=== PATIENT | female | born 1955 | race Caucasian/White ===

== ENCOUNTER 2019-09-18 06:42 | Emergency (ER) | payer OTHER ==
[2019-09-18 07:42] LABS: ABSOLUTE LYMPHOCYTES (AUTO) 1.6 10^3/uL (0.5-4.7); ABSOLUTE MONOCYTES (AUTO) 0.8 10^3/uL (0.1-1.4); ABSOLUTE NEUT (AUTO) 11.1 10^3/uL (1.7-8.2); BASOPHILS % (AUTO) 0.3 % (0-2); EOSINOPHILS % (AUTO) 0.2 % (0-6); HEMATOCRIT 42.5 % (36.0-47.0); HEMOGLOBIN 14.3 g/dL (12.0-15.5); LYMPHOCYTES % (AUTO) 11.8 % (13-45); MEAN CORPUSCULAR HEMOGLOBIN 29.4 pg (27.0-33.4); MEAN CORPUSCULAR HGB CONC 33.6 g/dL (32.0-36.0); MEAN CORPUSCULAR VOLUME 88 fl (80-97); MONOCYTES % (AUTO) 5.8 % (3-13); PLATELET COUNT 403 10^3/uL (150-450); RED BLOOD COUNT 4.86 10^6/uL (3.72-5.28); RED CELL DISTRIBUTION WIDTH 12.9 % (11.5-14.0); SEGMENTED NEUTROPHILS % (AUTO) 81.9 % (42-78); TOTAL CELLS COUNTED % (AUTO) 100 %; WHITE BLOOD COUNT 13.6 10^3/uL (4.0-10.5)
[2019-09-18 07:52] LABS: AMORPHOUS SEDIMENT,URINE 1+ /HPF; APPEARANCE,URINE TURBID; BILIRUBIN,URINE NEGATIVE (NEGATIVE); COLOR,URINE YELLOW; GLUCOSE, URINE NEGATIVE (NEGATIVE); KETONES,URINE NEGATIVE (NEGATIVE); LEUKOCYTE ESTERASE,URINE TRACE (NEGATIVE); NITRITE,URINE NEGATIVE (NEGATIVE); PROTEIN,URINE 30 mg/dL (NEGATIVE); URINE SPECIFIC GRAVITY 1.025; UROBILINOGEN,URINE NEGATIVE mg/dL (<2.0)
[2019-09-18 08:09] LABS: ALBUMIN 4.1 g/dL (3.5-5.0); ALKALINE PHOSPHATASE 89 U/L (38-126); ANION GAP 11 (5-19); ASPARTATE AMINO TRANSFERASE 21 U/L (14-36); BILIRUBIN,DIRECT 0.2 mg/dL (0.0-0.4); BILIRUBIN,TOTAL 0.6 mg/dL (0.2-1.3); BLOOD UREA NITROGEN 11 mg/dL (7-20); CALCIUM 9.3 mg/dL (8.4-10.2); CARBON DIOXIDE 25 mmol/L (22-30); CHLORIDE 104 mmol/L (98-107); GLUCOSE 141 mg/dL (75-110); TOTAL PROTEIN 7.2 g/dL (6.3-8.2)
--- NOTE | 2019-09-18 09:21 | ER Document Report ---
ED GI/ - General Chief Complaint: Abdominal Pain Stated Complaint: STOMACH PAIN Time Seen by Provider: 09/18/19 09:20 Primary Care Provider: CRISSY PORTILLO MD [Primary Care Provider] - Follow up as needed Notes: CHIEF COMPLAINT: Abdominal pain and diarrhea HPI: 63-year-old female presenting to the emergency department for evaluation of generalized abdominal pain and diarrhea. Patient states symptoms began yeste rday. Patient with history of gallstone pancreatitis in 2010 that resolved after cholecystectomy. Patient states that she has a constant level of generalized discomfort with some waves of increased pain. She has had some nausea no vomiting. Patient states she has had multiple episodes of watery diarrhea, 4 this morning, greater than 8 or 9 yesterday. No blood in stool. Discomfort is worse with position and movement. She has not had a fever. No recent travel outside of the country, no recent hospitalizations or antibiotic use ROS: See HPI - all other systems were reviewed and are otherwise negative Constitutional: no fever Eyes: no drainage, no blurred vision ENT: no runny nose, no sore throat Cardiovascular: no chest pain Resp: no SOB, no cough GI: no vomiting, + diarrhea, + abdominal pain, + nausea : no dysuria Integumentary: no rash Allergy: no hives Musculoskeletal: no extremity pain or swelling Neurological: no numbness/tingling, no weakness MEDICATIONS: I agree with the patient medications as charted by the RN. ALLERGIES: I agree with the allergies as charted by the RN. PAST MEDICAL HISTORY/PAST SURGICAL HISTORY: Reviewed and agree as charted by RN. SOCIAL HISTORY: Reviewed and agree as charted by RN. FAMILY HISTORY: No significant familial comorbid conditions directly related to patient complaint EXAM: Reviewed vital signs as charted by RN. CONSTITUTIONAL: Alert and oriented and responds appropriately to questions. Well-appearing; well-nourished, moderate distress secondary to pain HEAD: Normocephalic; atraumatic EYES: PERRL; Conjunctivae clear, sclerae non-icteric ENT: normal nose; no rhinorrhea; moist mucous membranes; pharynx without lesions noted, no uvula edema or deviation, no tonsillar hypertrophy, phonation normal NECK: Supple without meningismus; non-tender; no cervical lymphadenopathy, no masses CARD: RRR; no murmurs, no clicks, no rubs, no gallops; symmetric distal pulses RESP: Normal chest excursion without splinting or tachypnea; breath sounds clear and equal bilaterally; no wheezes, no rhonchi, no rales, pulse oximetry ABD/GI: Normal bowel sounds; non-distended; soft, generalized abdominal pain in all quadrants on palpation with guarding; no palpable organomegaly or masses. BACK: The back appears normal and is non-tender to palpation, there is no CVA tenderness EXT: Normal ROM in all joints; non-tender to palpation; no cyanosis, no effusions, no edema SKIN: Normal color for age and race; warm; dry; good turgor; no acute lesions noted NEURO: Moves all extremities equally; Motor and sensory function intact PSYCH: The patient's mood and manner are appropriate. Grooming and personal hygiene are appropriate. MDM: 63-year-old female presenting to the emergency department complaining of generalized abdominal pain with multiple episodes of diarrhea that began yesterday. No recent antibiotic use or hospitalizations. Prior history of cholecystectomy. She has diffuse abdominal pain on palpation. Screening abdominal labs were obtained by triage showing a mild leukocytosis of 13.6. Urinalysis does not show evidence of infection. Will plan for CT to evaluate for pancreatitis, colitis, perforation or obstruction TRAVEL OUTSIDE OF THE [place] IN LAST 30 DAYS: No - Related Data Allergies/Adverse Reactions: codeine [Codeine] Allergy (Verified 03/22/14 15:48) latex [Latex] Allergy (Verified 03/22/14 15:48) Sulfa (Sulfonamide Antibiotics) Allergy (Verified 03/22/14 15:48) Past Medical History - Social History Smoking Status: Never Smoker Chew tobacco use (# tins/day): No Frequency of alcohol use: None Drug Abuse: None Family History: Reviewed & Not Pertinent Patient has suicidal ideation: No Patient has homicidal ideation: No - Immunizations Hx Diphtheria, Pertussis, Tetanus Vaccination: Yes Physical Exam - Vital signs Vitals: Temp Pulse BP Pulse Ox 97.8 F 119 H 152/91 H 98 09/18/19 06:48 09/18/19 06:48 09/18/19 06:48 09/18/19 06:48 Course - Re-evaluation Re-evalutation: 09/18/19 13:33 Patient was noted to have acute colitis on CT. Clinically looks well. Will start patient on Cipro Flagyl, patient states she can take Percocet for pain. We will also write Zofran. Will refer patient for GI follow-up. We discussed strict return instructions for focal abdominal pain fever or uncontrolled pain at home. Patient is in agreement with this plan. - Vital Signs Vital signs: Temp Pulse Resp BP Pulse Ox 98.2 F 119 H 146/81 H 93 09/18/19 12:00 09/18/19 06:48 09/18/19 12:00 09/18/19 12:01 - Laboratory Result Diagrams: 09/18/19 07:25 09/18/19 07:25 Laboratory results interpreted by me: 09/18/19 09/18/19 09/18/19 07:00 07:25 07:25 WBC 13.6 H Lymph % (Auto) 11.8 L Absolute Neuts (auto) 11.1 H Seg Neutrophils % 81.9 H Glucose 141 H Urine Protein 30 H Ur Leukocyte Esterase TRACE H Discharge - Discharge Clinical Impression: Acute colitis, Diverticulosis, Left nephrolithiasis Condition: Stable Disposition: HOME, SELF-CARE Additional Instructions: Take the medications as prescribed, hydrate well at home. Do not drive if taking narcotics for pain. Follow-up with gastroenterology for further evaluation and treatment call for appointment. If you have uncontrolled pain at home, focal abdominal pain or fever greater than 101 return to the emergency department for evaluation as discussed. It was noted on your imaging studies today that you have diverticulosis and acute colitis. It was also noted that you have a kidney stone in the left kidney Prescriptions: Ciprofloxacin HCl [Cipro 500 mg Tablet] 500 mg PO BID #20 tablet Metronidazole [Flagyl 500 mg Tablet] 500 mg PO Q6H #28 tablet Oxycodone HCl/Acetaminophen [Percocet 5-325 mg Tablet] 1 - 2 tab PO Q4H PRN #15 tablet PRN Reason: Ondansetron [Zofran Odt 4 mg Tablet] 1 - 2 tab PO Q4H PRN #15 tab.rapdis PRN Reason: For Nausea/Vomiting Referrals: CRISSY PORTILLO MD [Primary Care Provider] - Follow up as needed ROSEANNA VAZQUEZ MD [ACTIVE STAFF] - Follow up as needed
--- NOTE | 2019-09-18 12:44 | RADIOLOGY REPORT (SQ) ---
EXAM DESCRIPTION: CT ABD/PELVIS WITH IV ORAL COMPLETED DATE/TIME: 09/18/2019 12:27 pm REASON FOR STUDY: generalized abd pain COMPARISON: None. TECHNIQUE: CT scan of the abdomen and pelvis performed using helical scanning technique with dynamic intravenous contrast injection. No oral contrast. Images reviewed with lung, soft tissue, and bone windows. Reconstructed coronal and sagittal MPR images reviewed. Delayed images for evaluation of the urinary system also acquired. All images stored on PACS. All CT scanners at this facility use dose modulation, iterative reconstruction, and/or weight based d osing when appropriate to reduce radiation dose to as low as reasonably achievable (ALARA). [facility]: Dose Right [facility]: CareDose [facility]: Dose Right [facility]: Teradose 4D [facility]: [place] CONTRAST TYPE AND DOSE: contrast/concentration: Isovue 350.00 mg/ml; Total Contrast Delivered: 95.0 ml; Total Saline Delivered: 71.0 ml RENAL FUNCTION: GFR > 60. RADIATION DOSE: CT Rad equipment meets quality standard of care and radiation dose reduction techniq ues were employed. CTDIvol: 14.7 - 18.0 mGy. DLP: 1989 mGy-cm.. LIMITATIONS: None. FINDINGS: LOWER CHEST: Gastroesophageal reflux. LIVER: Normal size. No masses. No dilated ducts. SPLEEN: Normal size. No focal lesions. PANCREAS: No masses. No significant calcifications. No adjacent inflammation or peripancreatic fluid collections. Pancreatic duct not dilated. GALLBLADDER: Surgically absent. ADRENAL GLANDS: No significant masses or asymmetry. RIGHT KIDNEY AND URETER: No solid masses. No significant calcifications. No hydronephrosis or hyd roureter. LEFT KIDNEY AND URETER: No solid masses. 7 mm stone lower pole. No hydronephrosis or hydroureter. AORTA AND VESSELS: No aneurysm. No dissection. Renal arteries, SMA, celiac without stenosis. RETROPERITONEUM: No retroperitoneal adenopathy, hemorrhage or masses. BOWEL AND PERITONEAL CAVITY: Bowel wall thickening involving jejunum in the right lower quadrant and pelvis. No clear transition. Ileum is normal. Diverticulosis descending and sigmoid colon. Small amount of ascites. No free air. APPENDIX: Appendicolith. No inflammation. PELVIS: Small amount of free fluid. No pelvic adenopathy. ABDOMINAL WALL: Small fat containing anterior abdominal wall hernias. BONES: No significant or acute findings. OTHER: No other significant finding. IMPRESSION: 1. Bowel wall thickening involving loops of jejunum in the right lower quadrant and pelvis most likel y due to inflammatory or infectious process. 2. Small amount of ascites. 3. Diverticulosis without evidence of diverticulitis. 4. Nonobstructing left renal calculus. TECHNICAL DOCUMENTATION: JOB ID: [id number] Quality ID # [id number]: Final reports with documentation of one or more dose reduction techniques (e.g., Au tomated exposure control, adjustment of the mA and/or kV according to patient size, use of iterative reconstruction technique) 2010 [employer]- All Rights Reserved Reading location - IP/workstation name: INSTRUMENT PROCESSING TECH-[facility]-
[2019-09-18] MEDS ORDERED: ONDANSETRON HCL INJ/PF 4 MG/2 ML SDV IV ONE (13:05)
[2019-09-18] MEDS ORDERED: METRONIDAZOLE 500 MG TABLET PO ONE (13:05)
[2019-09-18] MEDS ORDERED: MORPHINE SULFATE 10 MG/ML INJ IV ONE (13:05)
[2019-09-18] MEDS ORDERED: CIPROFLOXACIN HCL 500 MG TABLET PO ONE (13:05)
[2019-09-18 15:07] VITALS: BP 146/77
== END 2019-09-18 15:05 | disposition home or self-care (01) ==
LOC: ER 06:42
DX: K52.9 Noninfective gastroenteritis and colitis, unspecified (principal); K57.90 Diverticulosis of intestine, part unspecified, without perforation or abscess without bleeding; N20.0 Calculus of kidney; R10.84 Generalized abdominal pain; R11.0 Nausea; Z88.6 Allergy status to analgesic agent; Z91.040 Latex allergy status; Z88.2 Allergy status to sulfonamides
CPT/HCPCS: 99284; 96374; 96375; 36415; 83690; 85025; 80053; 81001; 74177; J2270; J2405

== ENCOUNTER 2020-08-21 16:41 | Emergency (ER) | payer OTHER ==
[2020-08-21] MEDS ORDERED: NORMAL SALINE 1000 ML 1,000 ML IV ONE (17:32)
[2020-08-21] MEDS ORDERED: ONDANSETRON HCL INJ/PF 4 MG/2 ML SDV IV ONE (17:32)
[2020-08-21] MEDS ORDERED: KETOROLAC TROMETHAMINE INJ/PF 30 MG/1 ML SDV IV ONE (17:32)
--- NOTE | 2020-08-21 17:34 | ER Document Report ---
ED Medical Screen (RME) - General Chief Complaint: Flank Pain Stated Complaint: LEFT FLANK PAIN Time Seen by Provider: 08/21/20 17:23 Primary Care Provider: CRISSY PORTILLO MD [Primary Care Provider] - Follow up as needed TRAVEL OUTSIDE OF THE [place] IN LAST 30 DAYS: No - HPI Notes: 08/21/20 17:33 64-year-old female presents to ED for evaluation of left-sided flank pain starting at early this morning. Notes that she did take Tylenol and ibuprofen this morning with some improvement. Reports she has had difficulty urinating all day. Also reports 1 bowel movement that was liquid in nature. Denies history of kidney stones. Has had diverticulitis in the past however reports that this feels different. Denies any recent sick contacts. Denies other complaints. - Related Data Allergies/Adverse Reactions: codeine [Codeine] Allergy (Verified 03/22/14 15:48) latex [Latex] Allergy (Verified 03/22/14 15:48) Sulfa (Sulfonamide Antibiotics) Allergy (Verified 03/22/14 15:48) Home Medications: Synthroid Past Medical History - Social History Chew tobacco use (# tins/day): No Frequency of alcohol use: None Drug Abuse: None Endocrine Medical History: Reports: Hx Hypothyroidism Past Surgical History: Reports: Hx Cholecystectomy - Immunizations Hx Diphtheria, Pertussis, Tetanus Vaccination: Yes Physical Exam - Vital signs Vitals: Temp Pulse Resp BP Pulse Ox 98.3 F 75 16 155/81 H 99 08/21/20 17:15 08/21/20 17:15 08/21/20 17:15 08/21/20 17:15 08/21/20 17:15 General: No acute distress. Alert and oriented x3. Sitting comfortably in a stretcher. Skin: No jaundice, pallor, petechiae, or rashes. Warm and dry. Heart: Regular rate and rhythm. S1,S2. No murmurs, rubs, or gallops. Lungs: Clear to auscultation bilaterally. No wheezes, rhonchi, rales. Equal chest expansion. No retractions. Abdomen: Soft, tender to palpation in left lower abdomen, nondistended. Positive bowel sounds in all 4 quadrants. No masses. CVA tenderness to left side Back: No midline spinal TTP. No paraspinous muscular TTP. Neuro: GCS 15. Moving all extremities without discomfort. Psych: Mood and affect appropriate. Course - Vital Signs Vital signs: Temp Pulse Resp BP Pulse Ox 98.3 F 75 16 155/81 H 99 08/21/20 17:15 08/21/20 17:15 08/21/20 17:15 08/21/20 17:15 08/21/20 17:15 Doctor's Discharge - Discharge Referrals: CRISSY PORTILLO MD [Primary Care Provider] - Follow up as needed
[2020-08-21 18:23] LABS: AMORPHOUS SEDIMENT,URINE TRACE /HPF; APPEARANCE,URINE CLOUDY; BILIRUBIN,URINE NEGATIVE (NEGATIVE); COLOR,URINE AMBER; GLUCOSE, URINE NEGATIVE (NEGATIVE); KETONES,URINE NEGATIVE (NEGATIVE); LEUKOCYTE ESTERASE,URINE LARGE (NEGATIVE); NITRITE,URINE NEGATIVE (NEGATIVE); PROTEIN,URINE 100 mg/dL (NEGATIVE); URINE SPECIFIC GRAVITY 1.033; UROBILINOGEN,URINE NEGATIVE mg/dL (<2.0)
[2020-08-21 18:41] LABS: ABSOLUTE LYMPHOCYTES (AUTO) 1.4 10^3/uL (0.5-4.7); ABSOLUTE MONOCYTES (AUTO) 0.8 10^3/uL (0.1-1.4); ABSOLUTE NEUT (AUTO) 6.1 10^3/uL (1.7-8.2); BASOPHILS % (AUTO) 0.3 % (0-2); EOSINOPHILS % (AUTO) 0.2 % (0-6); HEMOGLOBIN 12.6 g/dL (12.0-15.5); LYMPHOCYTES % (AUTO) 17.3 % (13-45); MEAN CORPUSCULAR HEMOGLOBIN 30.3 pg (27.0-33.4); MEAN CORPUSCULAR HGB CONC 34.1 g/dL (32.0-36.0); MEAN CORPUSCULAR VOLUME 89 fl (80-97); MONOCYTES % (AUTO) 9.3 % (3-13); PLATELET COUNT 265 10^3/uL (150-450); RED BLOOD COUNT 4.16 10^6/uL (3.72-5.28); RED CELL DISTRIBUTION WIDTH 13.1 % (11.5-14.0); SEGMENTED NEUTROPHILS % (AUTO) 72.9 % (42-78); TOTAL CELLS COUNTED % (AUTO) 100 %; WHITE BLOOD COUNT 8.3 10^3/uL (4.0-10.5)
[2020-08-21 18:53] LABS: ALKALINE PHOSPHATASE 95 U/L (38-126); ANION GAP 8 (5-19); ASPARTATE AMINO TRANSFERASE 20 U/L (14-36); BILIRUBIN,DIRECT 0.1 mg/dL (0.0-0.4); BILIRUBIN,TOTAL 0.3 mg/dL (0.2-1.3); BLOOD UREA NITROGEN 20 mg/dL (7-20); CALCIUM 9.3 mg/dL (8.4-10.2); CARBON DIOXIDE 26 mmol/L (22-30); CHLORIDE 104 mmol/L (98-107); GLUCOSE 107 mg/dL (75-110); POTASSIUM 3.5 mmol/L (3.6-5.0); TOTAL PROTEIN 6.7 g/dL (6.3-8.2)
--- NOTE | 2020-08-21 20:24 | RADIOLOGY REPORT (SQ) ---
EXAM DESCRIPTION: CT ABDOMEN PELVIS WITH IV CONTRAST COMPLETED DATE/TME: 08/21/2020 20:06 CLINICAL HISTORY: 64 years, Female, kidney stones TECHNICAL DOCUMENTATION: Quality ID # [id number]: Final reports with documentation of one or more dose reduction techniques (e.g., Automated exposure control, adjustment of the mA and/or kV according to patient size, use of iterative reconstruction technique) Comparison: None TECHNIQUE: Contiguous axial CT images of the abdomen and pelvis were obtained. Sagittal and coronal reformats were reviewed. This exam was performed according to our departmental dose-optimization program, which includes automated exposure control, adjustment of the mA and/or kV according to patient size and/or use of iterative reconstruction technique. FINDINGS: Lung bases: Lung bases are clear. No pleural abnormalities. Liver:Unremarkable. No focal liver lesion. Gallbladder:Cholecystectomy clips seen in gallbladder fossa. Spleen:Unremarkable Pancreas: Pancreas is unremarkable. Adrenal glands:Within normal limits. Kidneys/ureters: Mild left hydronephrosis secondary to a 6 x 4 mm calculus within the ureteropelvic junction. No additional left renal calculi. No hydronephrosis or nephrolithiasis on the right. The left kidney is mildly edematous in appearance with adjacent mild perinephric fat stranding. Stomach/small bowel/colon: Stomach is unremarkable. Small bowel is unremarkable. Colonic diverticulosis without evidence of diverticulitis. Appendix: No evidence of appendicitis. Peritoneum: No free fluid. Vascular structures: within normal limits Lymph nodes: No abnormal lymph nodes. Bladder:Unremarkable. Pelvic organs: No acute abnormality Bones: No acute osseous abnormality. Soft tissues: Small fat-containing umbilical and supraumbilical hernias.. IMPRESSION: Obstructive calculus in the left ureteropelvic junction measuring approximately 6 x 4 mm. Colonic diverticulosis without evidence of diverticulitis.
[2020-08-21] MEDS ORDERED: CEFTRIAXONE 1 GM/D5W RTU 1 GM/50 ML RTUPB IV ONE (21:34)
--- NOTE | 2020-08-21 22:00 | ER Document Report ---
ED General - General Chief Complaint: Flank Pain Stated Complaint: LEFT FLANK PAIN Time Seen by Provider: 08/21/20 17:23 Primary Care Provider: CRISSY PORTILLO MD [Primary Care Provider] - Follow up as needed TYSON ESCOBEDO MD [NO LOCAL MD] - Follow up in 3-5 days TRAVEL OUTSIDE OF THE [place] IN LAST 30 DAYS: No - HPI Notes: Patient is a 64-year-old female with a past medical history of hypothyroidism who presents with left flank pain. Symptoms began this morning. It woke her up from sleep. Pain is intermittent and sharp. She denies any urinary symptoms prior to this starting. She states she has been unable to urinate today until she got some fluids in the ER. No fevers or chills. She has never had a kidney stone before. She does not have a urologist. Patient denies any nausea, vomiting, headaches, lightheadedness. Tylenol and ibuprofen helps her pain. - Related Data Allergies/Adverse Reactions: codeine [Codeine] Allergy (Verified 03/22/14 15:48) latex [Latex] Allergy (Verified 03/22/14 15:48) Sulfa (Sulfonamide Antibiotics) Allergy (Verified 03/22/14 15:48) Home Medications: Synthroid Past Medical History - General Information source: Patient - Social History Smoking Status: Never Smoker Chew tobacco use (# tins/day): No Frequency of alcohol use: None Drug Abuse: None Family History: Reviewed & Not Pertinent Endocrine Medical History: Reports: Hx Hypothyroidism Past Surgical History: Reports: Hx Cholecystectomy - Immunizations Hx Diphtheria, Pertussis, Tetanus Vaccination: Yes Review of Systems - Review of Systems Notes: CONSTITUTIONAL: No fever, fatigue or weight loss. SKIN: No rash. HENT: No congestion, ear pain, or sore throat. EYES: No recent vision problems or eye pain. ENDOCRINE: No thyroid problems. CARDIOVASCULAR: No chest pain or edema. RESPIRATORY: No cough, shortness of breath, congestion, or wheezing. GASTROINTESTINAL: No abdominal pain, nausea, vomiting, bloody stools or diarrhea. Positive for left flank pain. GENITOURINARY: No dysuria. Positive for decreased urination. MUSCULOSKELETAL: No joint pain or swelling. LYMPHATIC: No swollen glands. NEUROLOGIC: No seizures. No headache, focal weakness or sensory changes. HEMATOLOGIC: No unusual bruising or bleeding. PSYCHIATRIC: No depression or anxiety. Physical Exam - Vital signs Vitals: Temp Pulse Resp BP Pulse Ox 98.3 F 75 16 155/81 H 99 08/21/20 17:15 08/21/20 17:15 08/21/20 17:15 08/21/20 17:15 08/21/20 17:15 - General General appearance: Appears well Notes: VITAL SIGNS: Within normal limits. GENERAL: No acute distress, non-toxic appearance. HEAD: Normal with no signs of head trauma. EYES: Conjunctiva normal, no discharge. EARS: Hearing grossly intact. NOSE: Normal. NECK: Normal range of motion, no tenderness, supple, no lymphadenopathy, No adenopathy, no JVD. CHEST: Clear breath sounds bilaterally. No wheezes, rales, or rhonchi. CARDIAC: Regular rate and rhythm. S1 and S2, without murmurs, gallops, or rubs. VASCULAR: No Edema. ABDOMEN: Normal and soft with no tenderness, no masses or pulsatile masses. No CVA tenderness. MUSCULOSKELETAL: Good range of motion of all major joints. Extremities without clubbing, cyanosis or edema. NEUROLOGICAL: Alert and oriented x 3. No focal sensory or strength deficits. Speech normal. Follows commands appropriately. PSYCHIATRIC: Normal Affect, judgement and mood. SKIN: Normal appearance with no rashes or lesions. Course - Re-evaluation Re-evalutation: 08/21/20 22:00 Patient has a kidney stone in the area of her pain. She also has evidence of a UTI. As I am concerned for infected kidney stone, I will discuss with [facility]. Patient received Rocephin. Blood and urine cultures were obtained. Her vitals are within normal limits. She looks to be in no acute distress. I did inform her of this and told her that she may need to be transferred to [facility]. Patient adamantly refused. She states she feels fine and has to take care of her who is Parkinson's. I discussed with Dr. Tyson Escobedo from [facility]. He does not think she needs to be transferred. He reviewed her imaging and her lab work. He recommended that she be given Rocephin here and discharged with Keflex. He also recommended that she monitor her temperatures and return to the ER immediately for any fever or worsening symptoms. He told her to call the office on Sunday as she will need to see them outpatient. He also requested that we straight cath her to get a clean-catch urine. I discussed all this with the patient. She refused to have a straight cath as she states that she does not want this done and already gave a urine sample. I did discuss with her pain control. I checked her [employer]. She will be given Flomax. Patient will be started on antibiotics. I discussed strict return precautions with her and she verbalized understanding. Patient continues to be in no acute distress and afebrile. States her pain has resolved. 08/22/20 01:46 - Vital Signs Vital signs: Temp Pulse Resp BP Pulse Ox 98.1 F 71 16 143/80 H 99 08/21/20 22:57 08/21/20 22:57 08/21/20 22:57 08/21/20 22:57 08/21/20 22:57 - Laboratory Results Result Diagrams: 08/21/20 18:09 08/21/20 18:09 Laboratory Results Interpreted: 08/21/20 08/21/20 17:53 18:09 Potassium 3.5 L Creatinine 1.49 H Est GFR ( Amer) 43 L Est GFR (MDRD) Non-Af 35 L Lipase 385.2 H Urine Protein 100 H Urine Blood LARGE H Ur Leukocyte Esterase LARGE H Critical Laboratory Results Reviewed: No Critical Results - Radiology Results Critical Radiology Results Reviewed: No Critical Results Discharge - Discharge Clinical Impression: Left ureteral calculus Urinary tract infection Qualifiers: Urinary tract infection type: site unspecified Hematuria presence: without hematuria Qualified Code(s): N39.0 - Urinary tract infection, site not specified Condition: Stable Disposition: HOME, SELF-CARE Instructions: Kidney Stone ([facility]), Urinary Tract Infection ([facility]) Additional Instructions: Your work-up today shows a left-sided kidney stone. He also have signs of a urinary tract infection. Monitor your temperature at home. Please return to the ER immediately for any nausea, vomiting, fevers, chills any other concerning symptoms. You will be prescribed an antibiotic. Please call the urologist office first thing Sunday morning for a follow-up. Prescriptions: Tamsulosin HCl [Flomax] 0.4 mg PO DAILY #3 cap.er.24h Cephalexin Monohydrate [Keflex 500 mg Capsule] 500 mg PO QID 7 Days #28 capsule Hydrocodone/Acetaminophen [[place] 5-325 Tablet] 1 each PO Q8H 5 Days #6 tablet Ondansetron [Zofran Odt 4 mg Tablet] 4 mg PO Q6H PRN 7 Days #10 tab.rapdis PRN Reason: Referrals: CRISSY PORTILLO MD [Primary Care Provider] - Follow up as needed TYSON ESCOBEDO MD [NO LOCAL MD] - Follow up in 3-5 days
[2020-08-21 22:57] VITALS: BP 143/80
== END 2020-08-21 23:00 | disposition home or self-care (01) ==
LOC: ER 16:41
DX: N20.1 Calculus of ureter (principal); N39.0 Urinary tract infection, site not specified; R10.9 Unspecified abdominal pain; E03.9 Hypothyroidism, unspecified; Z88.8 Allergy status to other drugs, medicaments and biological substances; Z88.2 Allergy status to sulfonamides
CPT/HCPCS: 99285; 96361; 96374; 96375; 36415; 87040; 87086; 83690; 85025; 87088; 80053; 81001; 74177; J1885; J2405; J7030; J0696